=== PATIENT | male | born 1990 | race Caucasian/White ===

== ENCOUNTER 2020-08-14 04:40 | Emergency (ER) | payer MEDICAID, SELFPAY ==
--- NOTE | 2020-08-14 04:41 | ED.ABDPAIN ---
HPI - Abdominal Pain General Chief Complaint: Abdominal Pain Stated Complaint: ABD PAIN SINCE MIDNIGHT Time Seen by Provider: 08/14/20 04:41 Source: patient and EMS Mode of arrival: EMS Limitations: no limitations History of Present Illness MD elicited complaint: abdominal pain Pertinent past history: none Onset (ago): hour(s) (5 ) Pain Consistency: constant Location: diffuse Severity: severe Quality: stabbing and aching Radiation: none Migration to: LUQ, RUQ, LLQ and RLQ Exacerbating factors: movement Relieving factors: nothing Associated symptoms: nausea, vomiting, constipation and hematuria Related Data Previous Rx's Medication Instructions Recorded hydrocodone-acetaminophen 1 tab PO Q6H PRN #12 tab 08/14/20 ibuprofen 600 mg PO Q6H PRN #30 tab 08/14/20 ondansetron 4 mg PO Q8H PRN #20 tab 08/14/20 Allergies Allergy/AdvReac Type Severity Reaction Status Date / Time No Known Allergies Allergy Unverified 06/09/20 19:36 [No Known Allergies*] Review of Systems Review of Systems Constitutional : No Weight loss, No Fever, No Chills ENT/Mouth : No sore throat, No Rhinorrhea Eyes: No Swelling, No Redness Cardiovascular : No Chest Pain, No SOB, NoEdema Respiratory : No Cough, No Sputum, No Wheezing Gastrointestinal : Positive Nausea, Positive Vomiting, no Diarrhea, positive abdominal Pain, No Hematochezia, No Melena Genitourinary : No Dysuria, No Urinary Frequency, pos Hematuria, No Urgency Musculoskeletal : No joint pain, No Myalgias, No Joint Swelling Skin : No Skin Lesions, No rash Neuro : No Weakness, No Numbness, No Dizziness, No Headache Psych : No Anxiety/Panic, No Depression Heme/Lymph: No Bruising, No Lymphadenopathy Endocrine : No Polyuria, No Polydipsia All other systems reviewed and are negative. Physical Exam Vital Signs: Vital Signs: Last Vital Signs Temp 97.5 F 08/14/20 04:49 Pulse 55 08/14/20 04:49 Resp 16 08/14/20 04:49 BP 152/81 H 08/14/20 04:49 Pulse Ox 99 08/14/20 04:49 Body Mass Index 28.0 Appearance: Alert. Oriented X3. Anxious, in pain, mild acute distress. Eyes: Pupils equal, round and reactive to light. ENT: Pharynx normal. Neck: Normal inspection. Neck supple. CVS: Normal heart rate and rhythm. Pulses normal. Respiratory: No respiratory distress. Breath sounds normal. Abdomen: Soft and moderate diffuse ttp no rebound, vol guarding Skin: Skin warm and dry. Normal skin color. Normal skin turgor. Extremities: No lower extremity edema. No calf ttp Neuro: Oriented X 3. No motor deficit. No sensory deficit. Course Course Course Narrative: passed stone at this time, pain improved stable for DC MDM - Abdominal Pain MDM Narrative Medical decision making narrative: 30 yo male with no past surgical history here with diffuse abdominal pain that started at midnight with n/v and c/o feeling need to have BM but he couldn't go then noted 1 episode of hematuria at this time will need labs, IVF, IV dilaudid for pain, CT scan to r/o renal colic vs appendicitis, dispo per results and findings. Differential Diagnosis Differential diagnosis: Likely abdominal pain, acute appendicitis, calculus of kidney and renal colic Lab Data Result diagrams: 08/14/20 05:00 08/14/20 05:00 Labs: Lab Results 08/14/20 08/14/20 08/14/20 Range/Units 05:00 05:00 05:00 WBC 11.2 H (4.8-10.8) X10*3/uL RBC 5.02 (4.60-5.80) X10*6/uL Hgb 16.1 (14.0-18.0) g/dl Hct 45.1 (42-52) % MCV 89.8 (80-98) fL MCH 32.1 (27.0-33.0) pg MCHC 35.7 (31.0-36.0) g/dl RDW 11.9 (11.0-16.0) % Plt Count 214 (160-400) X10*3/uL MPV 10.9 (9.4-12.4) fL Immature Gran % (Auto) 0.3 (0.0-0.4) % Neut % (Auto) 68.6 (45-73) % Lymph % (Auto) 19.7 L (20-40) % [place] % (Auto) 8.6 (2-11) % Eos % (Auto) 2.3 (0-4) % Baso % (Auto) 0.5 (0-2) % Lymph # (Auto) 2.2 (1.2-4.9) X10*3/uL [place] # (Auto) 1.0 (0.1-1.2) X10*3/uL Eos # (Auto) 0.3 (0.0-0.4) X10*3/uL Baso # (Auto) 0.1 (0.0-0.2) X10*3/uL Abs Immat Gran (auto) 0.03 (0.00-0.03) X10*3/uL Absolute Neuts (auto) 7.7 (2.0-8.3) X10*3/uL Absolute Nucleated RBC 0.000 (0.0-0.012) X10*3/uL Nucleated RBC % (auto) 0.0 (0.0-0.2) /100WBC Hold Blue Top SEE NOTE Sodium 138 (135-145) mmol/L Potassium 3.4 (3.3-5.1) mmol/l Chloride 103 (96-108) mmol/L Carbon Dioxide 20 L (22-29) mmol/L Anion Gap 18 (12-20) BUN 14 (9-16) mg/dL Creatinine 1.04 (0.5-1.4) mg/dL Estim Creat Clear Calc 121.0 Estimated GFR > 60 Random Glucose 117 H (60-115) mg/dL Lactic Acid (0.5-2.0) mmol/L Calcium 9.3 (8.4-10.2) mg/dL Magnesium 1.8 (1.6-2.6) mg/dL Total Bilirubin 0.7 (0.0-1.0) mg/dL Direct Bilirubin 0.4 (0.0-0.5) mg/dL AST 23 (5-37) U/L ALT 44 H (0-40) U/L Alkaline Phosphatase 120 H (39-117) U/L Total Protein 7.4 (6.5-8.0) g/dL Albumin 4.5 (3.5-5.0) g/dL Lipase 27 (8-78) U/L Urine Color Urine Appearance Urine pH (5.0-8.0) Ur Specific [place] (1.005-1.025) Urine Protein (NEG-TRACE) MG/DL Urine Glucose (UA) (NEG) MG/DL Urine Ketones (NEG) MG/DL Urine Blood (NEG) Urine Nitrite (NEG) Ur Leukocyte Esterase (NEG) Ethyl Alcohol mg/dL 08/14/20 08/14/20 08/14/20 Range/Units 05:00 05:00 06:13 WBC (4.8-10.8) X10*3/uL RBC (4.60-5.80) X10*6/uL Hgb (14.0-18.0) g/dl Hct (42-52) % MCV (80-98) fL MCH (27.0-33.0) pg MCHC (31.0-36.0) g/dl RDW (11.0-16.0) % Plt Count (160-400) X10*3/uL MPV (9.4-12.4) fL Immature Gran % (Auto) (0.0-0.4) % Neut % (Auto) (45-73) % Lymph % (Auto) (20-40) % [place] % (Auto) (2-11) % Eos % (Auto) (0-4) % Baso % (Auto) (0-2) % Lymph # (Auto) (1.2-4.9) X10*3/uL [place] # (Auto) (0.1-1.2) X10*3/uL Eos # (Auto) (0.0-0.4) X10*3/uL Baso # (Auto) (0.0-0.2) X10*3/uL Abs Immat Gran (auto) (0.00-0.03) X10*3/uL Absolute Neuts (auto) (2.0-8.3) X10*3/uL Absolute Nucleated RBC (0.0-0.012) X10*3/uL Nucleated RBC % (auto) (0.0-0.2) /100WBC Hold Blue Top Sodium (135-145) mmol/L Potassium (3.3-5.1) mmol/l Chloride (96-108) mmol/L Carbon Dioxide (22-29) mmol/L Anion Gap (12-20) BUN (9-16) mg/dL Creatinine (0.5-1.4) mg/dL Estim Creat Clear Calc Estimated GFR Random Glucose (60-115) mg/dL Lactic Acid 1.7 (0.5-2.0) mmol/L Calcium (8.4-10.2) mg/dL Magnesium (1.6-2.6) mg/dL Total Bilirubin (0.0-1.0) mg/dL Direct Bilirubin (0.0-0.5) mg/dL AST (5-37) U/L ALT (0-40) U/L Alkaline Phosphatase (39-117) U/L Total Protein (6.5-8.0) g/dL Albumin (3.5-5.0) g/dL Lipase (8-78) U/L Urine Color JOEL Urine Appearance HAZY Urine pH 6.5 (5.0-8.0) Ur Specific [place] 1.010 (1.005-1.025) Urine Protein TRACE (NEG-TRACE) MG/DL Urine Glucose (UA) NEG (NEG) MG/DL Urine Ketones 15 (NEG) MG/DL Urine Blood 3+ H (NEG) Urine Nitrite NEG (NEG) Ur Leukocyte Esterase NEG (NEG) Ethyl Alcohol < 10 mg/dL Discharge Plan Discharge Clinical Impression: Ureterolithiasis Abdominal pain Qualifiers: Abdominal location: generalized Qualified Code(s): R10.84 - Generalized abdominal pain Patient Disposition: Home, Self-Care Instructions: Ureteral Stones (ED) Additional Instructions: return to ED for any worsening symptoms or concerns Prescriptions: New hydrocodone-acetaminophen 5-325 mg tablet 1 tab PO Q6H PRN (Reason: pain) Qty: 12 RF: 0 ibuprofen 600 mg tablet 600 mg PO Q6H PRN (Reason: pain) Qty: 30 RF: 0 ondansetron 4 mg tablet,disintegrating 4 mg PO Q8H PRN (Reason: nausea and vomiting) Qty: 20 RF: 0 Referrals: Physician,Unknown [Primary Care Provider] - 2 days (as needed) Stand Alone Forms: Work/School Release COUNTS INCLUDE 234 BEDS AT THE [facility] Past Medical History Attestation statement: The following information was validated with the patient. Medical History Migraine Social History Social History (Updated 08/14/20 @ 05:06 by Gabriella Huerta DO) Alcohol intake: current Alcohol intake frequency: a few times a week Smoking Status: Current every day smoker Substance Use Type: Marijuana Advance Directives: No Advance Directives Information Provided: No
[2020-08-14 04:49] VITALS: BP 134/76; BP 152/81; PULSE 55; PULSE 60; RESP 16; TEMP 36.4; O2SAT 95; O2SAT 99; BMI 28.0
--- NOTE | 2020-08-14 04:52 | CT_ITS ---
EXAMINATION: CT ABDOMEN AND PELVIS WITH CONTRAST CLINICAL INFORMATION: Right lower quadrant pain COMPARISON: 09/09/2018 TECHNIQUE: Multidetector volumetric images were obtained from the superior aspect of the liver through the pubic symphysis following administration 85 mL of Omnipaque 350 intravenous contrast. Sagittal and coronal reformatted images were obtained on the technologist's workstation. Oral contrast: No This CT examination was performed using dose optimization techniques as appropriate, variously including the following: *Automated exposure control *Adjustment of mA and/or kV according to patient size (this includes techniques or standardized protocols for targeted exams where dose is matched to indication/reason for exam; i.e. extremities or head) *Use of iterative reconstruction technique DLP: 574 mGy-cm FINDINGS: LUNG BASES: Bibasilar subsegmental atelectasis. LIVER, GALLBLADDER, AND BILIARY TREE: The liver is normal in size, shape, and attenuation. No focal hepatic lesion or biliary ductal dilatation is present. The gallbladder is unremarkable with no evidence of radiopaque gallstones, gallbladder wall thickening, or obvious pericholecystic inflammatory changes. PANCREAS: Unremarkable. SPLEEN: Unremarkable. ADRENAL GLANDS: Unremarkable. KIDNEYS AND URETERS: The right nephrogram is delayed, and there is mild right hydronephrosis. No calculus is seen in the ureter, though a 2 mm calculus is noted in the dependent aspect of the urinary bladder, suspicious for a recently passed right ureteral stone. No left hydronephrosis or obstructing calculus. BLADDER: Mildly distended. A 2 mm calculus is noted dependently in the bladder near the midline, likely a recently passed right ureteral stone. GASTROINTESTINAL TRACT: Assessment for wall thickening in some segments of the colon is limited due to luminal collapse, though no significant pericolonic stranding is seen to strongly suggest a colitis. Colonic diverticulosis is noted. No evidence of bowel obstruction. The appendix is unremarkable. No free fluid or free air is seen. ABDOMINAL WALL: No significant hernia is appreciated. LYMPH NODES: Normal. VASCULAR: Unremarkable. PELVIC VISCERA: Unremarkable. OSSEOUS STRUCTURES: Unremarkable. CT/CT abdomen pelvis w con IMPRESSION: 1. Calculus in the dependent aspect of the urinary bladder measuring 2 mm which likely represents a recently passed right ureteral stone, as there is mild right hydronephrosis with a delayed nephrogram. 2. Colonic diverticulosis.
[2020-08-14] MEDS: ondansetron HCL 4 MG/2 ML VIAL IVPUSH (05:01)
[2020-08-14] MEDS: 0.9 % Sodium Chloride 1,000 ML 999 ML IVCONT (05:01)
[2020-08-14] MEDS: HYDROmorphone HCl 1 MG/ML SYRINGE IVPUSH (05:01)
[2020-08-14] MEDS: Ketorolac Tromethamine 30 MG/ML VIAL IVPUSH (05:02)
[2020-08-14 05:08] LABS: Basophils Absolute Auto 0.1 X10*3/uL (0.0-0.2); Basophils Percent Auto 0.5 % (0-2); Eosinophils Absolute Auto 0.3 X10*3/uL (0.0-0.4); Eosinophils Percent Auto 2.3 % (0-4); Hematocrit 45.1 % (42-52); Hemoglobin 16.1 g/dl (14.0-18.0); Imm Gran Abs Auto 0.03 X10*3/uL (0.00-0.03); Imm Gran Pct Auto 0.3 % (0.0-0.4); Lymphocytes Absolute Auto 2.2 X10*3/uL (1.2-4.9); Lymphocytes Percent Auto 19.7 % (20-40); MANUAL DIFF FLAG NO; Mean Corpuscular HGB Conc 35.7 g/dl (31.0-36.0); Mean Corpuscular Hemoglobin 32.1 pg (27.0-33.0); Mean Corpuscular Volume 89.8 fL (80-98); Mean Platelet Volume 10.9 fL (9.4-12.4); Monocytes Percent Auto 8.6 % (2-11); Neutrophils Absolute Auto 7.7 X10*3/uL (2.0-8.3); Neutrophils Percent Auto 68.6 % (45-73); Platelet Count 214 X10*3/uL (160-400); Red Blood Count 5.02 X10*6/uL (4.60-5.80); Red Cell Distribution Width 11.9 % (11.0-16.0); White Blood Count 11.2 X10*3/uL (4.8-10.8)
[2020-08-14 05:28] LABS: Lactic Acid 1.7 mmol/L (0.5-2.0)
[2020-08-14 05:29] LABS: Ethanol < 10 mg/dL
[2020-08-14 05:32] LABS: Alanine Aminotransferase 44 U/L (0-40); Albumin Level 4.5 g/dL (3.5-5.0); Alkaline Phosphatase 120 U/L (39-117); Anion Gap 18 (12-20); Aspartate Amino Transferase 23 U/L (5-37); Bilirubin Direct 0.4 mg/dL (0.0-0.5); Bilirubin Total 0.7 mg/dL (0.0-1.0); Blood Urea Nitrogen 14 mg/dL (9-16); Calcium 9.3 mg/dL (8.4-10.2); Carbon Dioxide 20 mmol/L (22-29); Chloride 103 mmol/L (96-108); Estimated Glomerular Filt Rate > 60; Glucose Random 117 mg/dL (60-115); Lipase 27 U/L (8-78); Magnesium 1.8 mg/dL (1.6-2.6); Potassium 3.4 mmol/l (3.3-5.1); Sodium 138 mmol/L (135-145); Total Protein 7.4 g/dL (6.5-8.0)
[2020-08-14] MEDS: iohexoL 350 MG/ML 100 ML INFUS..BTL IV (06:17)
[2020-08-14 06:23] LABS: Glucose Urine UA NEG (NEG); Leukocyte Esterase Urine NEG (NEG); Nitrite Urine NEG (NEG); PH 6.5 (5.0-8.0); Urine Blood 3+ (NEG); Urine Ketones 15 MG/DL (NEG); Urine Protein TRACE MG/DL (NEG-TRACE)
[2020-08-14 06:25] LABS: Appearance Urine HAZY; Color Urine AMBER
[2020-08-14 06:36] LABS: Bacteria Urine 1+ /LPF; Squamous Epithelial Cell Urine 1+ /LPF
[2020-08-14 06:49] LABS: Amphetamine Screen Urine Not Detected (Not Detect); Barbiturates, Urine Not Detected (Not Detect); Benzodiazepines Screen Urine Not Detected (Not Detect); Cannabinoid Screen Urine POSITIVE (Not Detect); Cocaine Screen Urine Not Detected (Not Detect); Opiate Screen Urine Not Detected (Not Detect); Phencyclidine Screen Urine Not Detected (Not Detect)
== END 2020-08-14 06:44 | disposition home or self-care (01) ==
PROVIDERS: Emergency Provider Emergency Medicine
DX: N20.1 Calculus of ureter (principal); R10.12 Left upper quadrant pain; R10.11 Right upper quadrant pain; R10.31 Right lower quadrant pain; R10.84 Generalized abdominal pain; F12.90 Cannabis use, unspecified, uncomplicated; Z79.899 Other long term (current) drug therapy; F17.200 Nicotine dependence, unspecified, uncomplicated; Z71.6 Tobacco abuse counseling
CPT/HCPCS: 36415; 74177; 80048; 80076; 80307; 80320; 81001; 83605; 83690; 83735; 85025; 96361; 96374; 96375; 99284; J1170; J1885; J2405; Q9967

== ENCOUNTER 2022-05-18 14:39 | Emergency (ER) | payer OTHER, SELFPAY ==
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
[2022-05-18 14:40] VITALS: BP 155/90; PULSE 84; BMI 29.7
--- NOTE | 2022-05-18 15:11 | ECG_ITS ---
Test Reason : CHEST PAIN Blood Pressure : / mmHG Vent. Rate : 074 BPM Atrial Rate : 074 BPM P-R Int : 154 ms QRS Dur : 088 ms QT Int : 374 ms P-R-T Axes : 035 023 035 degrees QTc Int : 415 ms Normal sinus rhythm Normal ECG No previous ECGs available Referred By: Adela Caruso Electronically Signed By:VONNIE LION
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
[2022-05-18] MEDS: 0.9 % Sodium Chloride 1,000 ML 999 ML IVCONT (15:49)
[2022-05-18 16:09] LABS: MANUAL DIFF FLAG NO
[2022-05-18 16:11] LABS: Basophils Absolute Auto 0.1 X10*3/uL (0.0-0.2); Basophils Percent Auto 0.7 % (0-2); Eosinophils Absolute Auto 0.1 X10*3/uL (0.0-0.4); Eosinophils Percent Auto 1.7 % (0-4); Hematocrit 50.2 % (42.0-52.0); Hemoglobin 17.8 g/dl (14.0-18.0); Imm Gran Abs Auto 0.04 X10*3/uL (0.00-0.03); Imm Gran Pct Auto 0.5 % (0.0-0.4); Lymphocytes Absolute Auto 2.6 X10*3/uL (1.2-4.9); Lymphocytes Percent Auto 33.6 % (20-40); Mean Corpuscular HGB Conc 35.5 g/dl (31.0-36.0); Mean Corpuscular Hemoglobin 32.8 pg (27.0-33.0); Mean Corpuscular Volume 92.6 fL (80.0-98.0); Monocytes Absolute Auto 0.6 X10*3/uL (0.1-1.2); Neutrophils Absolute Auto 4.2 x10*3/uL (2.0-8.3); Neutrophils Percent Auto 55.5 % (45-73); Platelet Count 220 X10*3/uL (160-400); Red Blood Count 5.42 X10*6/uL (4.60-5.80); White Blood Count 7.6 X10*3/uL (4.8-10.8)
[2022-05-18 16:19] LABS: INTERNATIONAL NORM RATIO 0.9 (0.9-1.1); Prothrombin Time 10.1 SEC (10.0-13.1)
--- NOTE | 2022-05-18 16:26 | PC.NURSE ---
attempted to obtain urine sample, pt filled urine cup with warm water from sink. educated pt related to color and temp of urine. pt stated I;m just really hydrated
[2022-05-18 16:28] LABS: Alanine Aminotransferase 36 U/L (0-40); Albumin Level 4.7 g/dL (3.5-5.0); Alkaline Phosphatase 111 U/L (39-117); Anion Gap 18 (12-20); Aspartate Amino Transferase 32 U/L (5-37); Bilirubin Total 0.6 mg/dL (0.0-1.0); Blood Urea Nitrogen 8 mg/dL (9-16); Calcium 9.1 mg/dL (8.4-10.2); Carbon Dioxide 24 mmol/L (22-29); Chloride 107 mmol/L (96-108); Creatinine Clr Calc Pharmacy 157.4; Estimated Glomerular Filt Rate > 60; Glucose Random 84 mg/dL (60-115); Potassium 3.6 mmol/L (3.3-5.1); Sodium 145 mmol/L (135-145); Total Protein 7.7 g/dL (6.5-8.0)
[2022-05-18 16:32] LABS: Troponin-I High Sensitivity < 3.5 ng/L (<3.5-35.0)
--- NOTE | 2022-05-18 17:50 | MHC.RECOVSUP ---
? Reason for consult Recovery support o Current location: [facility] o Identified substance use concern: Alcohol - Support ? Intervention: o <del>ATS</del> <del>bed</del> <del>search</del> <del>started/completed/in</del> <del>process</del> <del>o</del> <del>MAT</del> <del>started</del> <del>or</del> <del>to</del> <del>be</del> <del>started</del> o Community resources provided o Harm reduction discussion ? Plan: o <del>Referral</del> <del>to</del> <del>[facility]</del> <del>o</del> <del>Bed</del> <del>search</del> <del>in</del> <del>progress</del> <del>to</del> <del>o</del> <del>Follow</del> <del>up</del> <del>tomorrow</del> <del>o</del> <del>Patient</del> <del>awaiting</del> <del>crisis</del> <del>evaluation</del> o Patient to follow up with [facility] after discharge ? Additional information: Patient Told the doctor that they wanted to go to detox.. Then had a change of heart...Patient had a bed at [facility] and paper work was faxs
[2022-05-18 17:56] LABS: Ethanol 322 mg/dL
--- NOTE | 2022-05-18 18:04 | PC.NURSE ---
PT WAS SLEEPING, WOKE UP, REPORTED THAT HE WANTED TO KNOW WHAT WAS GOING ON BECAUSE HE WANTS TO GO HOME. T/W ASKED THE PT IF HE HAD A SAFE RIDE HOME THAT IS THE ONLY WAY WE SAFELY D/C HIM GIVEN HIS ALCOHOL INTOXICATION. PT STATED I HAVE TWO FEET I CAN WALK . T/W INFORMED PT THAT IT IS UNSAFE TO D.C HIM AGAIN GIVEN HIS ALCOHOL LEVEL, AND THAT HE WOULD NEED TO CALL A FRIEND/FAMILY OR GET OTHER SAFE RIDE HOME. PT THEN STATED WELL I TWO FEET AND THERES A DOOR HERE SO WHAT ARE YOU GOING TO DO . T/W INFORMED ROBERT ESCOBEDO OF PTS STATEMENTS AND DESIRE TO LEAVE. PT PREVIOUSLY MENTIONED A WANT FOR DETOX, SCENE PAINTER AT BEDSIDE SETTING THIS UP WHEN PT STATED HE NO LONGER WANTED TO GO WHY WOULD I WAN TO GO TO THAT WHEN I CAN GO HOME TO MY OWN BED . AGAIN, ROBERT ESCOBEDO MADE AWARE. PT DOES NOT MEET CRITERIA TO SECTION TO THE HOSPITAL. PT ABLE TO AMBULATE INDEPENDENTLY AND WITH STEADY GAIT.
== END 2022-05-18 18:15 | disposition left against medical advice (07) ==
PROVIDERS: Physician Assistant Medical; Emergency Provider Emergency Medicine
DX: M25.522 Pain in left elbow (principal); M79.10 Myalgia, unspecified site; R51.9 Headache, unspecified; M54.2 Cervicalgia; M54.6 Pain in thoracic spine; F10.129 Alcohol abuse with intoxication, unspecified; F17.200 Nicotine dependence, unspecified, uncomplicated; Z71.6 Tobacco abuse counseling; Y90.8 Blood alcohol level of 240 mg/100 ml or more; Z79.899 Other long term (current) drug therapy
CPT/HCPCS: 36415; 70450; 71250; 72125; 73080; 74176; 80053; 82077; 83735; 84484; 85025; 85610; 93005; 96360; 99284; 99285

== ENCOUNTER → 2024-10-06 13:58 | Outpatient (BNVA) | payer OTHER, SELFPAY | PROVIDERS: Visit Provider Physician Assistant Medical | DX: S61.215A Laceration without foreign body of left ring finger without damage to nail, initial encounter (principal); W31.89XA Contact with other specified machinery, initial encounter; Z23 Encounter for immunization | CPT/HCPCS: 12001; 90715; 99203 ==

== ENCOUNTER → 2024-10-08 15:36 | Outpatient (BNVA) | payer OTHER, SELFPAY | PROVIDERS: Visit Provider Physician Assistant | DX: S61.215A Laceration without foreign body of left ring finger without damage to nail, initial encounter (principal); W31.89XA Contact with other specified machinery, initial encounter | CPT/HCPCS: 99213 ==

== ENCOUNTER → 2024-10-16 15:20 | Outpatient (BNVA) | payer OTHER, SELFPAY | PROVIDERS: Visit Provider Physician Assistant Medical | DX: S61.215A Laceration without foreign body of left ring finger without damage to nail, initial encounter (principal); W31.89XA Contact with other specified machinery, initial encounter; Z02.79 Encounter for issue of other medical certificate | CPT/HCPCS: 99213 ==

== ENCOUNTER 2025-02-03 18:16 | Emergency (ER) | payer OTHER, SELFPAY ==
[2025-02-03 18:19] VITALS: BP 135/93; PULSE 90; RESP 18; TEMP 36.6; O2SAT 99; BMI 30.1
--- NOTE | 2025-02-03 18:19 | ED.WOUNDLAC ---
HPI - Wound/Laceration General Chief Complaint: General Medical Stated Complaint: left side pimple on alevism, face swelling Time Seen by Provider: 02/03/25 20:26 Source: patient Limitations: no limitations History of Present Illness ED Provider: Lexy Sheldon PA-C HPI narrative: 34-year-old male presents with facial infection. Patient states he is prone to cutaneous cysts, he had what appeared to be a pimple over left temporal region, he attempted to decompress it. Some debris was expelled, when he woke up today, he developed redness at the site which is expanding over his cheek. Denies pain with extraocular eye movements or fever. Patient has a 2nd cystic lesion over the left forearm medial to the AC. Patient admits to consuming alcohol overnight. Related Data Previous Rx's ?Medication ?Instructions ?Recorded hydrocodone 5 mg-acetaminophen 325 1 tab PO Q6H PRN pain #12 tabs 08/14/ mg tablet ibuprofen 600 mg tablet 600 mg PO Q6H PRN pain #30 tabs 08/14/20 ondansetron 4 mg disintegrating 4 mg PO Q8H PRN nausea and 08/14/20 tablet vomiting #20 tabs doxycycline hyclate 100 mg capsule 100 mg PO BID #14 caps 02/03/25 Allergies Allergy/AdvReac Type Severity Reaction Status Date / Time No Known Allergies Allergy Verified 02/11/25 18:34 [No Known Allergies*] Review of Systems Review of Systems: Yes all other systems are reviewed and are negative Constitutional: Constitutional: Denies fatigue and Denies fever(s) Eyes: Eyes: Denies eye pain Integumentary/Breasts: Skin/Breast: Reports erythema and Reports sores Endocrine: Endocrine: Denies fatigue PMFSH Past Medical History Attestation statement: The following information was validated with the patient. Medical History Migraine Social History Social History Alcohol intake: current Alcohol intake frequency: 3 or more drinks per day Alcohol type: hard liquor Patient Tobacco Use Status: Current everyday Tobacco user Substance Use Type: Marijuana Advance Directives: No Advance Directives Information Provided: No Physical Exam Vital Signs: Vital Signs: Last Vital Signs Temp 97.5 F 02/03/25 23:43 Pulse 75 02/03/25 23:43 Resp 16 02/03/25 23:43 BP 144/85 H 02/03/25 23:43 Pulse Ox 97 02/03/25 23:43 O2 Del Method Room Air 02/03/25 23:43 BMI result Body Mass Index 30.1 Const: Other: Alert, there was no facial swelling or periorbital erythema Orientation/consciousness: patient oriented x3 Eyes: Other: No pain with extraocular eye movements Resp: Effort & Inspection: normal respiratory effort Cardio: Other: Normal peripheral perfusion Skin: Other: Warm dry, raised erythematous swelling noted over left temporal with central scab formation, minimal central fluctuance no active discharge from the site. There is a cystic lesion noted medial to the left AC, I can visualize a pore, it is firm in texture no overlying erythema, measures approximately 1.5 cm in diameter Neuro: General: patient oriented x3, gait normal, no focal motor deficits and CN's II-XI intact bilaterally Psych: Other: Cooperative Course Course Course Narrative: This is a rapid medical exam performed by Ezequiel Moran NP: Additional HPI, ROS, PE not included below will be deferred to primary provider. 34-year-old male with PMHx of migraines presents to the emergency department due to pimple on left side of face. He reports the pimple started draining last night while in the shower with no notable problems. He noticed today after work that he was experiencing left-sided facial swelling. He called [facility] to get in for an appointment, but was unable to. He states he is experiencing left-sided facial pain. Plan: Labs Medications Administered Discontinued Medications Generic Name Dose Route Start Last Admin Trade Name Freq PRN Reason Stop Dose Admin Doxycycline Monohydrate 100 mg 02/03/25 20:44 02/03/25 20:56 Doxycycline Monohydrate 100 Mg Capsule PO 02/03/25 20:45 100 mg ONCE ONE Administration Lidocaine/Epinephrine/Tetracaine 3 ml 02/03/25 21:26 02/03/25 21:30 Lidocaine/Racepinep/Tetracaine 3 Ml Gel.Pf.Balta TOPICAL 02/03/25 21:27 3 ml ONCE ONE Administration Medical Decision Making Medical Decision Making MDM Narrative: 34-year-old male presents with facial infection. Patient states he is prone to cutaneous cysts, he had what appeared to be a pimple over left temporal region, he attempted to decompress it. Some debris was expelled, when he woke up today, he developed redness at the site which is expanding over his cheek. Denies pain with extraocular eye movements or fever. Patient has a 2nd cystic lesion over the left forearm medial to the AC. Patient admits to consuming alcohol overnight. Problem: Prone to cyst formation History: Per patient I have considered the following differential diagnoses: Folliculitis, cellulitis, purulent cellulitis, abscess, infected cyst Plan: I have viewed the site over the left temporal region with bedside ultrasound, it appears there is a potential pocket of fluid versus a cyst, will I&D. Will also I&D the cyst over the forearm. We will be treating the patient for purulent cellulitis. No indication for labs or imaging. Lab Data 02/03/25 18:55 02/03/25 18:55 Labs: Lab Results 02/03/25 Range/Units 18:55 WBC 6.8 (4.8-10.8) X10*3/uL RBC 5.04 (4.60-5.80) X10*6/uL Hgb 16.3 (14.0-18.0) g/dl Hct 46.3 (42.0-52.0) % MCV 91.9 (80.0-98.0) fL MCH 32.3 (27.0-33.0) pg MCHC 35.2 (31.0-36.0) g/dl RDW 12.0 (11.0-16.0) % Plt Count 206 (160-400) X10*3/uL MPV 10.2 (9.4-12.4) fL Immature Gran % (Auto) 0.1 (0.0-0.4) % Neut % (Auto) 45.9 (45-73) % Lymph % (Auto) 39.4 (20-40) % [place] % (Auto) 10.4 (2-11) % Eos % (Auto) 3.5 (0-4) % Baso % (Auto) 0.7 (0-2) % Lymph # (Auto) 2.7 (1.2-4.9) X10*3/uL [place] # (Auto) 0.7 (0.1-1.2) X10*3/uL Eos # (Auto) 0.2 (0.0-0.4) X10*3/uL Baso # (Auto) 0.1 (0.0-0.2) X10*3/uL Abs Immat Gran (auto) 0.01 (0.00-0.03) X10*3/uL Absolute Neuts (auto) 3.1 (2.0-8.3) x10*3/uL Absolute Nucleated RBC 0.000 (0.0-0.012) X10*3/uL Nucleated RBC % (auto) 0.0 (0.0-0.2) /100WBC Sodium 144 (135-145) mmol/L Potassium 3.8 (3.3-5.1) mmol/L Chloride 107 (96-108) mmol/L Carbon Dioxide 26 (22-29) mmol/L Anion Gap 15 (12-20) BUN 10 (9-16) mg/dL Creatinine 0.88 (0.5-1.4) mg/dL Estim Creat Clear Calc 138.3 Estimated GFR > 60 Random Glucose 83 (60-115) mg/dL Calcium 9.1 (8.4-10.2) mg/dL Total Bilirubin 0.5 (0.0-1.0) mg/dL AST 26 (5-37) U/L ALT 40 (0-40) U/L Alkaline Phosphatase 93 (39-117) U/L Total Protein 7.8 (6.5-8.0) g/dL Albumin 4.7 (3.5-5.0) g/dL Procedures Abscess I/D Site: face and upper extremity (Skin cyst noted left upper extremity, 1% lidocaine with epi local used, 2 mL of anesthetic infiltrated at the site. The cyst was incised with a blade and manually removed. The site was closed with 3-0 nylon, 3 sutures required. Patient tolerated well) Side (if applicable): left Sedation/analgesia: none Local Anesthetic: lidocaine 1% and with epi Amount of anesthesia used (mL): 1 Technique: incised with blade and ultrasound guided Amount of fluid expressed (mL): 0 Sent for culture/gram staining?: No Irrigation: No Packing used?: none Discharge Plan Discharge Clinical Impression: Infected cyst of skin, Cellulitis Patient Disposition: Home, Self-Care Instructions: Cyst (ED), Incision and Drainage (ED) Additional Instructions: You are being treated for cellulitis secondary to an infected cyst over the temporal region. The cyst was lanced, 3 absorbable sutures were placed to close the wound. You had an additional cyst that was incised and removed. Three stitches were used to close the wound, they can be removed in 1 week. Watch for signs of infection at each site which would include redness, swelling, additional pus draining from the sites or fever. Follow up with your primary care provider as needed. You can also return to the emergency room in 7 days to have the stitches removed. Be sure to take the doxycycline as directed. Prescriptions: New doxycycline hyclate 100 mg capsule 100 mg PO BID Qty: 14 0RF No Action hydrocodone-acetaminophen 5-325 mg tablet 1 tab PO Q6H PRN (Reason: pain) Qty: 12 0RF ibuprofen 600 mg tablet 600 mg PO Q6H PRN (Reason: pain) Qty: 30 0RF ondansetron 4 mg tablet,disintegrating 4 mg PO Q8H PRN (Reason: nausea and vomiting) Qty: 20 0RF Stand Alone Forms: Work/School Release Interventions: ED Discharge Assessment Last Done: 02/03/25 23:43 Discharge Date/Time: 02/03/25 23:43 Print Language: Citizen [place]
[2025-02-03 18:59] LABS: MANUAL DIFF FLAG NO
[2025-02-03 19:03] LABS: Basophils Absolute Auto 0.1 X10*3/uL (0.0-0.2); Basophils Percent Auto 0.7 % (0-2); Eosinophils Absolute Auto 0.2 X10*3/uL (0.0-0.4); Eosinophils Percent Auto 3.5 % (0-4); Hematocrit 46.3 % (42.0-52.0); Hemoglobin 16.3 g/dl (14.0-18.0); Imm Gran Abs Auto 0.01 X10*3/uL (0.00-0.03); Imm Gran Pct Auto 0.1 % (0.0-0.4); Lymphocytes Absolute Auto 2.7 X10*3/uL (1.2-4.9); Lymphocytes Percent Auto 39.4 % (20-40); Mean Corpuscular HGB Conc 35.2 g/dl (31.0-36.0); Mean Corpuscular Hemoglobin 32.3 pg (27.0-33.0); Mean Corpuscular Volume 91.9 fL (80.0-98.0); Mean Platelet Volume 10.2 fL (9.4-12.4); Monocytes Absolute Auto 0.7 X10*3/uL (0.1-1.2); Monocytes Percent Auto 10.4 % (2-11); Neutrophils Absolute Auto 3.1 x10*3/uL (2.0-8.3); Neutrophils Percent Auto 45.9 % (45-73); Platelet Count 206 X10*3/uL (160-400); Red Blood Count 5.04 X10*6/uL (4.60-5.80); White Blood Count 6.8 X10*3/uL (4.8-10.8)
[2025-02-03 19:16] LABS: Alanine Aminotransferase 40 U/L (0-40); Albumin Level 4.7 g/dL (3.5-5.0); Alkaline Phosphatase 93 U/L (39-117); Anion Gap 15 (12-20); Aspartate Amino Transferase 26 U/L (5-37); Bilirubin Total 0.5 mg/dL (0.0-1.0); Blood Urea Nitrogen 10 mg/dL (9-16); Calcium 9.1 mg/dL (8.4-10.2); Carbon Dioxide 26 mmol/L (22-29); Chloride 107 mmol/L (96-108); Creatinine Clr Calc Pharmacy 138.3; Estimated Glomerular Filt Rate > 60; Glucose Random 83 mg/dL (60-115); Potassium 3.8 mmol/L (3.3-5.1); Sodium 144 mmol/L (135-145); Total Protein 7.8 g/dL (6.5-8.0)
[2025-02-03] MEDS: Doxycycline Monohydrate 100 MG CAPSULE PO (20:56)
[2025-02-03] MEDS: Lidocaine/Racepinep/Tetracaine 3 ML GEL.PF.APP TOPICAL (21:30)
[2025-02-03 23:40] VITALS: BP 144/85; PULSE 75; RESP 16; TEMP 36.4; O2SAT 97
[2025-02-03 23:43] VITALS: BP 144/85; PULSE 75; RESP 16; TEMP 36.4; O2SAT 97
== END 2025-02-03 23:43 | disposition home or self-care (01) ==
PROVIDERS: Registered Nurse Emergency; Emergency Provider Emergency Medicine; PCP Internal Medicine
DX: L02.414 Cutaneous abscess of left upper limb (principal); L72.9 Follicular cyst of the skin and subcutaneous tissue, unspecified; F17.210 Nicotine dependence, cigarettes, uncomplicated; Z79.899 Other long term (current) drug therapy
CPT/HCPCS: 10060; 36415; 80053; 85025; 99283; 99284

== ENCOUNTER 2025-02-11 18:29 | Emergency (ER) | payer OTHER, SELFPAY ==
[2025-02-11 18:32] VITALS: BP 140/95; PULSE 100; RESP 18; TEMP 36.7; O2SAT 100; BMI 29.6
--- NOTE | 2025-02-11 18:33 | ED.GENADULT ---
HPI - General Adult General Stated complaint: stitches removed right forearm Time Seen by Provider: 02/11/25 18:32 Source: patient, RN notes reviewed and old records reviewed Mode of arrival: ambulatory Limitations: no limitations History of Present Illness ED Provider: Luisa TEJADA narrative: Patient is a 34-year-old male presenting to the ED for removal of sutures placed to left forearm on 02/03. Denies any redness, swelling, drainage, fevers. MD complaint: suture removal Related Data Previous Rx's ?Medication ?Instructions ?Recorded hydrocodone 5 mg-acetaminophen 325 1 tab PO Q6H PRN pain #12 tabs 08/14/20 mg tablet ibuprofen 600 mg tablet 600 mg PO Q6H PRN pain #30 tabs 08/14/20 ondansetron 4 mg disintegrating 4 mg PO Q8H PRN nausea and 08/14/20 tablet vomiting #20 tabs doxycycline hyclate 100 mg capsule 100 mg PO BID #14 caps 02/03/25 Allergies Allergy/AdvReac Type Severity Reaction Status Date / Time No Known Allergies Allergy Verified 02/11/25 18:34 [No Known Allergies*] Review of Systems Review of Systems: as per mdm Yes all other systems are reviewed and are negative PMFSH Past Medical History Medical History Migraine Social History Social History Alcohol intake: current Alcohol intake frequency: 3 or more drinks per day Alcohol type: hard liquor Patient Tobacco Use Status: Current everyday Tobacco user Substance Use Type: Marijuana Physical Exam ED Vital Signs: Vital signs have been reviewed and appear to be correct. Blood pressure normal. Heart rate normal. Respiratory rate normal. Temperature normal. Oxygen saturation normal. Const General: cooperative, alert and awake Nutritional Appearance: average body habitus Orientation/consciousness: patient oriented x3 Limitations: no limitations HENMT Head: Yes normocephalic and Yes atraumatic Ears: hearing grossly normal bilaterally and external ears normal General nose exam: Normal external nose present Face and sinus: Yes face symmetric Mouth: oropharynx normal Throat: Yes posterior oropharynx normal and Yes uvula midline Eyes Pupils: Equal, round and reactive pupils present Neck Neck: Yes normal visual inspection and Yes supple Resp Effort & Inspection: normal respiratory effort Auscultation: clear to auscultation bilaterally Cardio Rate: regular rate Rhythm: regular rhythm Heart sounds: S1 normal heart sound present and S2 normal heart sound present Peripheral pulses: Peripheral pulses 2+ throughout Skin Full body images: 1. sutures in place without surrounding erythema, warmth, or drainage Neuro General: patient oriented x3, gait normal, tone normal, moves all extremities, CN's II-XI intact bilaterally and deep tendon reflexes 2+ bilaterally Cranial nerves: Yes Equal, round and reactive pupils present Extrem General: Yes normal to inspection, Yes full ROM and Yes capillary refill normal Medical Decision Making Medical Decision Making [facility] Narrative: Patient is a 34-year-old male presenting to the ED for removal of sutures placed to left forearm on 02/03. On exam patient is awake, A+Ox3, VS WNL, afebrile, normal neurological exam without focal deficits, physical exam findings as above. Given reported symptoms and physical exam findings, initial differential includes but is not limited to suture removal, wound check. No evidence of cellulitis/infection. #3 sutures removed from left forearm without difficulty with success. Dressing applied to area after suture removal. Advised patient to assess area at least once per day for signs of infection and follow up with PCP or return to the ED if this occurs. Patient verbalized understanding of and agreement with plan. Differential Diagnosis Differential Diagnoses: The differential diagnosis associated with the presentation includes As per [facility] Admission/Observation Consideration of admission/observation: Escalation of care including admission/observation considered Patient would have been admitted to the hospital had their work up had any findings where hospital admission was appropriate and their clinical presentation warranted hospital admission. External Record Review External record reviewed: Inpatient record, Office record and Outpatient record Discharge Plan Discharge Clinical Impression: Visit for suture removal Patient Disposition: Home, Self-Care Instructions: Stitches Removal (ED) Additional Instructions: You were seen in the emergency department today for suture removal. Your wound appears to be healing well. Please keep the area surrounding the wound clean and dry and cover with Band-Aid until fully healed. Do not submerge in water until fully healed. Please continue to assess the wound daily. Keep the area out of direct sunlight for the next 6 months to help prevent scarring. If you develop fever, redness, swelling at the site of your laceration, or thick yellow drainage please come back to the ER for a wound check. Prescriptions: No Action hydrocodone-acetaminophen 5-325 mg tablet 1 tab PO Q6H PRN (Reason: pain) Qty: 12 0RF ibuprofen 600 mg tablet 600 mg PO Q6H PRN (Reason: pain) Qty: 30 0RF ondansetron 4 mg tablet,disintegrating 4 mg PO Q8H PRN (Reason: nausea and vomiting) Qty: 20 0RF doxycycline hyclate 100 mg capsule 100 mg PO BID Qty: 14 0RF Print Language: Burmese
== END 2025-02-11 18:47 | disposition home or self-care (01) ==
LOC: HO.ED 18:44
PROVIDERS: Emergency Provider Emergency Medicine Emergency Medical Services; PCP Internal Medicine
DX: Z48.02 Encounter for removal of sutures (principal)
CPT/HCPCS: 99281

== ENCOUNTER 2025-02-26 18:57 | Emergency (ER) | payer OTHER, SELFPAY ==
--- NOTE | ~2025-02-26 | CT_ITS ---
CLINICAL HISTORY: infection, abscess vs cyst CT soft tissue neck with contrast. Comparison: None Findings: There is a superficial cystic lesion in the left lower face inferolateral to the angle of the mandible and anterior to the sternocleidomastoid measuring 3.9 x 2.4 cm most likely a 2nd branchial cleft cyst. There is a mildly thickened enhancing wall and mild surrounding fat stranding consistent with cyst infection. There are no enlarged lymph nodes. Parotid and submandibular glands are unremarkable. Thyroid is unremarkable. Blood vessels of the neck appear normal. There is a small amount of mucus in the paranasal sinuses. There are blebs or paraseptal emphysema at the lung apices. IMPRESSION: Cystic lesion in the left lower face as described above most likely a 2nd branchial cleft cyst. There is a mildly thickened enhancing wall and mild surrounding fat stranding consistent with cyst infection. This document has been electronically signed by: Tor Koo MD on 02/27/2025 04:09:40
[2025-02-26 19:08] VITALS: BP 138/89; PULSE 102; RESP 16; TEMP 36.7; O2SAT 96; BMI 29.1
[2025-02-26 20:00] LABS: Basophils Percent Auto 0.5 % (0-2); Eosinophils Absolute Auto 0.3 X10*3/uL (0.0-0.4); Eosinophils Percent Auto 3.3 % (0-4); Hematocrit 44.4 % (42.0-52.0); Hemoglobin 15.9 g/dl (14.0-18.0); Imm Gran Abs Auto 0.03 X10*3/uL (0.00-0.03); Imm Gran Pct Auto 0.3 % (0.0-0.4); Lymphocytes Absolute Auto 2.7 X10*3/uL (1.2-4.9); Lymphocytes Percent Auto 30.9 % (20-40); MANUAL DIFF FLAG NO; Mean Corpuscular HGB Conc 35.8 g/dl (31.0-36.0); Mean Corpuscular Hemoglobin 32.4 pg (27.0-33.0); Mean Corpuscular Volume 90.6 fL (80.0-98.0); Mean Platelet Volume 10.2 fL (9.4-12.4); Monocytes Absolute Auto 0.8 X10*3/uL (0.1-1.2); Monocytes Percent Auto 9.1 % (2-11); Neutrophils Absolute Auto 4.9 x10*3/uL (2.0-8.3); Neutrophils Percent Auto 55.9 % (45-73); Platelet Count 221 X10*3/uL (160-400); White Blood Count 8.7 X10*3/uL (4.8-10.8)
[2025-02-26 20:21] LABS: Alanine Aminotransferase 48 U/L (0-40); Albumin Level 4.8 g/dL (3.5-5.0); Alkaline Phosphatase 97 U/L (39-117); Anion Gap 12 (12-20); Aspartate Amino Transferase 29 U/L (5-37); Bilirubin Total 0.7 mg/dL (0.0-1.0); Blood Urea Nitrogen 11 mg/dL (9-16); C Reactive Protein 0.39 mg/dL (< or = 0.50); Calcium 9.6 mg/dL (8.4-10.2); Carbon Dioxide 27 mmol/L (22-29); Chloride 108 mmol/L (96-108); Creatinine Clr Calc Pharmacy 155.4; Estimated Glomerular Filt Rate > 60; Glucose Random 90 mg/dL (60-115); Potassium 3.5 mmol/L (3.3-5.1); Sodium 143 mmol/L (135-145); Total Protein 7.7 g/dL (6.5-8.0)
[2025-02-27 00:10] VITALS: BP 117/81; PULSE 80; RESP 16; TEMP 36.8; O2SAT 98
--- NOTE | 2025-02-27 01:44 | PC.NURSE ---
pt a&ox4, respirations even and unlabored. pt reports l neck abscess which had gotten painful and large. reports recent antibiotics for cyst on arm and reports it developed after. pt reports trouble swallowing but able to speak in full clear sentences. 20g placed in rac.
[2025-02-27 01:51] VITALS: RESP 17
[2025-02-27] MEDS: Morphine Sulfate 4 MG/ML CARTRIDGE IVPUSH (01:51)
[2025-02-27 01:59] VITALS: BP 140/80; PULSE 78; RESP 16; TEMP 36.4; O2SAT 98
[2025-02-27] MEDS: iohexoL 350 MG/ML 100 ML INFUS..BTL 60 ML IV (02:11)
[2025-02-27] MEDS: 0.9 % Sodium Chloride 1,000 ML 999 ML IV (02:25)
--- NOTE | 2025-02-27 03:05 | ED.GENADULT ---
HPI - General Adult General Chief complaint: Skin/Abscess/Foreign Body Stated complaint: cyst on neck irritating very painful to touch Time Seen by Provider: 02/27/25 00:37 Source: patient Limitations: no limitations History of Present Illness ED Provider: Lexy Sheldon PA-C HPI narrative: 34-year-old male presents with cyst. Patient states he is prone to cysts, he recently had to removed, he has 1 large cyst inferior to the left jaw line on the neck. Over the past 2 days it has increased in size and become very painful. He feels as if it is pushing on his trachea . Denies fever. Related Data Previous Rx's ?Medication ?Instructions ?Recorded hydrocodone 5 mg-acetaminophen 325 1 tab PO Q6H PRN pain #12 tabs 08/14/20 mg tablet ibuprofen 600 mg tablet 600 mg PO Q6H PRN pain #30 tabs 08/14/20 ondansetron 4 mg disintegrating 4 mg PO Q8H PRN nausea and 08/14/20 tablet vomiting #20 tabs doxycycline hyclate 100 mg capsule 100 mg PO BID #14 caps 02/03/25 cefuroxime axetil 500 mg tablet 500 mg PO BID 7 days #14 tabs 02/27/25 doxycycline hyclate 100 mg tablet 100 mg PO BID #20 tabs 02/27/25 Allergies Allergy/AdvReac Type Severity Reaction Status Date / Time adhesive tape Allergy Rash Verified 02/26/25 19:12 Review of Systems Review of Systems: Yes all other systems are reviewed and are negative Constitutional: Constitutional: Denies fatigue and Denies fever(s) ENT: Reports neck pain Cardiovascular: Cardiovascular: Denies chest pain and Denies dyspnea Respiratory: Respiratory: Denies dyspnea Musculoskeletal: Musculoskeletal: Reports neck pain Integumentary/Breasts: Skin/Breast: Reports furuncle and Reports swelling Endocrine: Endocrine: Denies fatigue PMFSH Past Medical History Attestation statement: The following information was validated with the patient. Medical History Migraine Social History Social History Alcohol intake: current Alcohol intake frequency: 0-2 drinks per day Alcohol type: beer Patient Tobacco Use Status: Current everyday Tobacco user Smoked in Last 30 Days: Yes Use of substances other than those prescribed or required for medical reasons: Yes Substance Use Type: Marijuana Substance Use Frequency: Daily Advance Directives: No Advance Directives Information Provided: No Do you have a plan to hurt others: No Plan Physical Exam ED Vital Signs: Vital Signs - 24 hr 02/26/25 19:08 02/27/25 00:10 02/27/25 01:51 Temperature 98.1 F 98.2 F Pulse Rate 102 H 80 Respiratory Rate 16 16 17 Blood Pressure 138/89 117/81 Pulse Oximetry 96 98 Oxygen Delivery Method Room Air Room Air 02/27/25 01:59 02/27/25 03:53 Temperature 97.6 F 97.7 F Pulse Rate 78 80 Respiratory Rate 16 16 Blood Pressure 140/80 H 124/77 Pulse Oximetry 98 96 Oxygen Delivery Method Room Air Room Air BMI result Body Mass Index 29.1 Const Other: Alert Orientation/consciousness: patient oriented x3 Neck Other: tender protuberant swelling inferior to the jawline on the left, overlying excoriation, no erythema, somewhat firm, nonmobile Resp Effort & Inspection: normal respiratory effort Cardio Other: normal peripheral perfusion Skin Other: warm dry no rash Neuro General: patient oriented x3, gait normal, no focal motor deficits and CN's II-XI intact bilaterally Psych Other: cooperative Medications Administered Discontinued Medications Generic Name Dose Route Start Last Admin Trade Name Ephraimq PRN Reason Stop Dose Admin Sodium Chloride 1,000 mls @ 999 mls/hr 02/27/25 01:45 02/27/25 03:58 Ns IV 02/27/25 02:45 Infused .Q1H1M ELI Infusion Iohexol 60 ml 02/27/25 02:11 02/27/25 02:11 Iohexol 350 Mg/Ml 100 Ml Infus..Btl IV 02/27/25 02:12 60 ml ONCE ONE Administration Morphine Sulfate 4 mg 02/27/25 01:41 02/27/25 01:51 Morphine Sulfate 4 Mg/Ml Cartridge IVPUSH 02/27/25 01:42 4 mg ONCE ONE Administration Protocol Procedures Abscess I/D Site: neck Side (if applicable): left Sedation/analgesia: none Local Anesthetic: lidocaine 1% Amount of anesthesia used (mL): 5 Technique: incised with blade Amount of fluid expressed (mL): 10 Sent for culture/gram staining?: Yes Irrigation: Yes Packing used?: iodoform Complications: pain Medical Decision Making Medical Decision Making [facility] Narrative: 34-year-old male presents with cyst. Patient states he is prone to cysts, he recently had to removed, he has 1 large cyst inferior to the left jaw line on the neck. Over the past 2 days it has increased in size and become very painful. He feels as if it is pushing on his trachea . Denies fever. problem: prone to cyst formation History: Per patient I have considered the following differential diagnoses: Cutaneous cyst, abscess, lymph node, cancer , cellulitis Plan: Screening labs obtained from triage, we will obtain imaging of the neck. Giving morphine and fluid. I have independently reviewed the following tests: Labs: No leukocytosis, not anemic, no electrolyte abnormality noted CT neck: Differential Diagnosis Differential Diagnoses: The differential diagnosis associated with the presentation includes Sebaceous cyst/abscess Lab Data 02/26/25 19:46 02/26/25 19:46 Labs: Lab Results 02/26/25 Range/Units 19:46 WBC 8.7 (4.8-10.8) X10*3/uL RBC 4.90 (4.60-5.80) X10*6/uL Hgb 15.9 (14.0-18.0) g/dl Hct 44.4 (42.0-52.0) % MCV 90.6 (80.0-98.0) fL MCH 32.4 (27.0-33.0) pg MCHC 35.8 (31.0-36.0) g/dl RDW 12.0 (11.0-16.0) % Plt Count 221 (160-400) X10*3/uL MPV 10.2 (9.4-12.4) fL Immature Gran % (Auto) 0.3 (0.0-0.4) % Neut % (Auto) 55.9 (45-73) % Lymph % (Auto) 30.9 (20-40) % [place] % (Auto) 9.1 (2-11) % Eos % (Auto) 3.3 (0-4) % Baso % (Auto) 0.5 (0-2) % Lymph # (Auto) 2.7 (1.2-4.9) X10*3/uL [place] # (Auto) 0.8 (0.1-1.2) X10*3/uL Eos # (Auto) 0.3 (0.0-0.4) X10*3/uL Baso # (Auto) 0.0 (0.0-0.2) X10*3/uL Abs Immat Gran (auto) 0.03 (0.00-0.03) X10*3/uL Absolute Neuts (auto) 4.9 (2.0-8.3) x10*3/uL Absolute Nucleated RBC 0.000 (0.0-0.012) X10*3/uL Nucleated RBC % (auto) 0.0 (0.0-0.2) /100WBC Sodium 143 (135-145) mmol/L Potassium 3.5 (3.3-5.1) mmol/L Chloride 108 (96-108) mmol/L Carbon Dioxide 27 (22-29) mmol/L Anion Gap 12 (12-20) BUN 11 (9-16) mg/dL Creatinine 0.77 (0.5-1.4) mg/dL Estim Creat Clear Calc 155.4 Estimated GFR > 60 Random Glucose 90 (60-115) mg/dL Calcium 9.6 (8.4-10.2) mg/dL Total Bilirubin 0.7 (0.0-1.0) mg/dL AST 29 (5-37) U/L ALT 48 H (0-40) U/L Alkaline Phosphatase 97 (39-117) U/L C-Reactive Protein 0.39 (< or = 0.50) mg/dL Total Protein 7.7 (6.5-8.0) g/dL Albumin 4.8 (3.5-5.0) g/dL Discharge Plan Discharge Clinical Impression: Infected sebaceous cyst Patient Disposition: Home, Self-Care Instructions: Dermal Cyst Excision (DC) Additional Instructions: You had infected sebaceous cyst which was removed packing was placed which should be removed in 2-3 days Take antibiotics as prescribed Follow with the PCP if not better Prescriptions: New doxycycline hyclate 100 mg tablet 100 mg PO BID Qty: 20 0RF cefuroxime axetil 500 mg tablet 500 mg PO BID 7 Days Qty: 14 0RF No Action hydrocodone-acetaminophen 5-325 mg tablet 1 tab PO Q6H PRN (Reason: pain) Qty: 12 0RF ibuprofen 600 mg tablet 600 mg PO Q6H PRN (Reason: pain) Qty: 30 0RF ondansetron 4 mg tablet,disintegrating 4 mg PO Q8H PRN (Reason: nausea and vomiting) Qty: 20 0RF doxycycline hyclate 100 mg capsule 100 mg PO BID Qty: 14 0RF Print Language: Ukrainian
[2025-02-27 03:53] VITALS: BP 124/77; PULSE 80; RESP 16; TEMP 36.5; O2SAT 96
--- NOTE | 2025-02-27 03:57 | MHC.EDTECH ---
0400 rounding done ,vitals taken ,Patient up to bathroom ,back to bed .
[2025-02-27] MEDS: cephALEXin 500 MG CAPSULE PO (04:58)
[2025-02-27] MEDS: Doxycycline Monohydrate 100 MG CAPSULE PO (04:58)
[2025-02-27 05:07] VITALS: BP 124/77; PULSE 80; RESP 16; TEMP 36.5; O2SAT 96
== END 2025-02-27 05:07 | disposition home or self-care (01) ==
PROVIDERS: Physician Assistant Medical; Emergency Provider Internal Medicine; PCP Internal Medicine
DX: L72.3 Sebaceous cyst (principal); M54.2 Cervicalgia; F17.210 Nicotine dependence, cigarettes, uncomplicated; Z79.899 Other long term (current) drug therapy
CPT/HCPCS: 10060; 36415; 70491; 80053; 85025; 86140; 96361; 96374; 99284; J2270; Q9967

== ENCOUNTER → 2025-02-27 01:40 | Outpatient (BNV) | payer OTHER, SELFPAY | PROVIDERS: Emergency Provider Internal Medicine; PCP Internal Medicine; Visit Provider Radiology Diagnostic Radiology | DX: L98.9 Disorder of the skin and subcutaneous tissue, unspecified (principal) | CPT/HCPCS: 70491 ==

== ENCOUNTER 2025-03-01 08:35 | Emergency (ER) | payer OTHER, SELFPAY ==
[2025-03-01 08:42] VITALS: BP 152/101; PULSE 82; RESP 16; TEMP 36.1; O2SAT 98; BMI 30.1
--- NOTE | 2025-03-01 08:54 | ED.WOUNDLAC ---
HPI - Wound/Laceration General Chief Complaint: Wound/Laceration Stated Complaint: large cyst drained two day ago Time Seen by Provider: 03/01/25 08:41 Source: patient Mode of arrival: ambulatory Limitations: no limitations History of Present Illness ED Provider: HPI narrative: 34-year-old male presented for removal of packing from the infected left sebaceous cyst that was drained on 02/27/2025, still on antibiotics has no other complaints concerns no drainage no fevers no chills Related Data Previous Rx's ?Medication ?Instructions ?Recorded hydrocodone 5 mg-acetaminophen 325 1 tab PO Q6H PRN pain #12 tabs 08/14/20 mg tablet ibuprofen 600 mg tablet 600 mg PO Q6H PRN pain #30 tabs 08/14/20 ondansetron 4 mg disintegrating 4 mg PO Q8H PRN nausea and 08/14/20 tablet vomiting #20 tabs doxycycline hyclate 100 mg capsule 100 mg PO BID #14 caps 02/03/25 cefuroxime axetil 500 mg tablet 500 mg PO BID 7 days #14 tabs 02/27/25 doxycycline hyclate 100 mg tablet 100 mg PO BID #20 tabs 02/27/25 Allergies Allergy/AdvReac Type Severity Reaction Status Date / Time adhesive tape Allergy Rash Verified 03/01/25 08:43 Review of Systems Constitutional: Constitutional: Reports as per [facility] Past Medical History Medical History Migraine Social History Social History Alcohol intake: current Alcohol intake frequency: 0-2 drinks per day Alcohol type: beer Patient Tobacco Use Status: Current everyday Tobacco user Substance Use Type: Marijuana Advance Directives: No Advance Directives Information Provided: Yes Physical Exam Vital Signs: Vital Signs: Last Vital Signs Temp 97 F 03/01/25 08:42 Pulse 82 03/01/25 08:42 Resp 16 03/01/25 08:42 BP 152/101 H 03/01/25 08:42 Pulse Ox 98 03/01/25 08:42 O2 Del Method Room Air 03/01/25 08:42 BMI result Body Mass Index 30.1 Const: Other: Packing removed from the left neck area drain cyst, no drainage after the removal, no surrounding erythema, otherwise no palpable lymphadenopathy full range of motion of the neck outpatient alert and oriented x4 Medical Decision Making Medical Decision Making MDM Narrative: Here for simple packing removal without any evidence for worsening infection Discharge Plan Discharge Clinical Impression: Wound check, abscess Patient Disposition: Home, Self-Care Additional Instructions: Areas clean and dry, use soap and water to keep the area clean they maybe some minimal bleeding or drainage that is fine, spreading redness spiking fevers come back to the ER I do not anticipate that finish your antibiotics Prescriptions: No Action hydrocodone-acetaminophen 5-325 mg tablet 1 tab PO Q6H PRN (Reason: pain) Qty: 12 0RF ibuprofen 600 mg tablet 600 mg PO Q6H PRN (Reason: pain) Qty: 30 0RF ondansetron 4 mg tablet,disintegrating 4 mg PO Q8H PRN (Reason: nausea and vomiting) Qty: 20 0RF doxycycline hyclate 100 mg capsule 100 mg PO BID Qty: 14 0RF doxycycline hyclate 100 mg tablet 100 mg PO BID Qty: 20 0RF cefuroxime axetil 500 mg tablet 500 mg PO BID 7 Days Qty: 14 0RF Print Language: Telugu
[2025-03-01 09:01] VITALS: BP 152/101; PULSE 82; RESP 16; TEMP 36.1; O2SAT 98
--- NOTE | 2025-03-01 09:01 | PC.NURSE ---
packing removed by provider, discharge instructions reviewed w pt.
== END 2025-03-01 09:01 | disposition home or self-care (01) ==
PROVIDERS: Emergency Provider Emergency Medicine; PCP Internal Medicine
DX: L02.11 Cutaneous abscess of neck (principal)
CPT/HCPCS: 99282; 99283